=== PATIENT | female | born 1975 | race Two or more races ===

== ENCOUNTER 2024-03-24 12:30 | Emergency (ER) | payer OTHER ==
[~2024-03-24] VITALS: Ht 167.6 cm; Wt 63.0 kg
[2024-03-24 13:12] LABS: APPEARANCE,URINE CLEAR (CLEAR); BILIRUBIN,URINE NEGATIVE (NEGATIVE); BLOOD, URINE TRACE-INTA Ery/uL (NEGATIVE); COLOR,URINE YELLOW (YELLOW); KETONES,URINE NEGATIVE (NEGATIVE); LEUKOCYTE ESTERASE ,URINE NEGATIVE (NEGATIVE); NITRITE, URINE NEGATIVE (NEGATIVE); PH,URINE 6.5 (5.0-8.0); PROTEIN,URINE NEGATIVE (NEGATIVE); UGLUCOSE NEGATIVE (NEGATIVE); UROBILINOGEN,URINE 0.2 EU/dL (0.2)
[2024-03-24 13:12] LABS: BASOPHILS % (AUTO) 0.1 % (0.0-2.0); EOSINOPHILS % (AUTO) 0.3 % (0.0-6.0); HEMATOCRIT 31 % (33-45); LYMPHOCYTES # (AUTO) 1.4 K/uL (0.8-4.8); LYMPHOCYTES % (AUTO) 19.7 % (20.0-44.0); MEAN CORPUSCULAR HEMOGLOBIN 26 PG (26.0-33.0); MEAN CORPUSCULAR HGB CONC 33 g/dl (31.0-36.0); MEAN CORPUSCULAR VOLUME 79 fL (82-100); MONOCYTES # (AUTO) 0.9 K/uL (0.1-1.30); MONOCYTES % (AUTO) 12.2 % (2.0-12.0); NEUTROPHILS # (AUTO) 4.8 K/uL (1.8-8.9); NEUTROPHILS % (AUTO) 67.7 % (43.0-81.0); PLATELET COUNT (AUTO) 92 K/uL (150-450); RED BLOOD CELL COUNT(AUTO) 3.86 MIL/uL (4.0-5.2); RED CELL DISTRIBUTION WIDTH 17.5 % (11.5-15.0); WHITE BLOOD COUNT (AUTO) 7.1 K/uL (4.3-11.0)
[2024-03-24 13:13] LABS: ADD URINE CULTURE NO; BACTERIA,URINE None seen /HPF (None Seen); PREGNANCY TEST URINE QUAL NEGATIVE (NEGATIVE); SQUAMOUS EPITHELIAL CELL,UR Few /HPF (None Seen); WBC,URINE 0-2 /HPF (0-3)
[2024-03-24] MEDS ORDERED: ONDANSETRON HCL/PF 4 MG/2 ML VIAL ONE (13:24)
[2024-03-24 13:25] LABS: CREATININE 0.9 mg/dL (0.6-1.3); INR 1.01 (0.91-1.10); PARTIAL THROMBOPLASTIN TIME 24.9 SEC (24.3-34.3); POTASSIUM 3.1 mmol/L (3.5-5.1); PROTHROMBIN TIME 10.7 SECS (9.2-11.1)
[2024-03-24] MEDS: IV NS 0.9% 1,000 ML BAG IV ONE (13:26)
[2024-03-24] MEDS: ONDANSETRON HCL/PF 4 MG/2 ML VIAL IV ONE (13:27)
[2024-03-24 13:33] LABS: ALBUMIN 3.1 g/dL (3.4-5.0); BILIRUBIN,DIRECT 0.2 mg/dL (0.0-0.2); BILIRUBIN,TOTAL 0.6 mg/dL (0.2-1.0); TOTAL PROTEIN, SERUM 6.8 g/dL (6.4-8.2)
[2024-03-24 13:37] LABS: ALCOHOL, BLOOD < 3 mg/dL (0-10)
[2024-03-24] MEDS: PANTOPRAZOLE 80 MG in IV NS 0.9% 500 ML IV ONE (13:57)
[2024-03-24] MEDS ORDERED: ONDA4TAB5 PO (14:36)
[2024-03-24] MEDS ORDERED: PANT40TA2 PO (14:36)
[2024-03-24 14:42] LABS: PHOSPHORUS 2.6 mg/dL (2.5-4.9)
[2024-03-24 16:04] VITALS: BP 129/78; TEMP 97.9; O2SAT 100
[2024-03-24 18:07] LABS: AMPHETAMINE, URINE NEGATIVE (NEGATIVE); BARBITURATE, URINE NEGATIVE (NEGATIVE); BENZODIAZEPINE, URINE NEGATIVE (NEGATIVE); CANNABINOID, URINE NEGATIVE (NEGATIVE); COCCAINE, URINE NEGATIVE (NEGATIVE); PHENCYCLIDINE SCREEN,URINE NEGATIVE (NEGATIVE)
[2024-03-24 18:08] LABS: OPIATE, URINE POSITIVE (NEGATIVE)
== END 2024-03-24 16:05 | disposition home or self-care (01) ==
LOC: ER 12:30
DX: K92.0 Hematemesis (principal); E87.6 Hypokalemia; R10.2 Pelvic and perineal pain; Z79.899 Other long term (current) drug therapy; Z79.52 Long term (current) use of systemic steroids
CPT/HCPCS: 99285; 96365; 96361; 96375; 93005; 71045; 85025; 80048; 83690; 80076; 83735; 84100; 84703; 81001; 36415; 84443; 85730; 82962; 80320; 80307; J2405; J7030; J7040; J2470; A4223; G0480

== ENCOUNTER 2025-06-25 13:59 | Emergency (ER) | payer OTHER ==
[~2025-06-25] VITALS: Ht 162.6 cm; Wt 56.7 kg
[~2025-06-25 13:59] MED LIST: ONDA4TAB5 PO; PANT40TA2 PO
[2025-06-25 14:17] VITALS: TEMP 97.9
[2025-06-25 14:52] LABS: APPEARANCE,URINE CLEAR (CLEAR); BLOOD, URINE TRACE-INTA Ery/uL (NEGATIVE); LEUKOCYTE ESTERASE ,URINE NEGATIVE (NEGATIVE); NITRITE, URINE NEGATIVE (NEGATIVE); UGLUCOSE NEGATIVE (NEGATIVE)
[2025-06-25] MEDS: IV NS 0.9% 1,000 ML BAG IV ONE (15:00)
[2025-06-25 15:01] LABS: ADD URINE CULTURE YES
[2025-06-25 15:04] LABS: AMPHETAMINE, URINE NEGATIVE (NEGATIVE); BARBITURATE, URINE NEGATIVE (NEGATIVE); BENZODIAZEPINE, URINE NEGATIVE (NEGATIVE); CANNABINOID, URINE NEGATIVE (NEGATIVE); COCCAINE, URINE NEGATIVE (NEGATIVE); OPIATE, URINE NEGATIVE (NEGATIVE)
[2025-06-25 15:10] LABS: PLATELET COUNT (AUTO) 318 K/uL (150-450); RED BLOOD CELL COUNT(AUTO) 5.06 MIL/uL (4.0-5.2); RED CELL DISTRIBUTION WIDTH 16.0 % (11.5-15.0); WHITE BLOOD COUNT (AUTO) 4.8 K/uL (4.3-11.0)
[2025-06-25 15:24] LABS: CALCIUM, SERUM 8.6 mg/dL (8.5-10.1); CREATININE 0.6 mg/dL (0.6-1.3); SODIUM SERUM 142 mmol/L (136-145); UREA NITROGEN, BLOOD 8 mg/dL (7-18)
[2025-06-25 15:31] LABS: ASPARTATE AMINOTRANSFERASE 33 U/L (15-37); TOTAL PROTEIN, SERUM 7.2 g/dL (6.4-8.2)
[2025-06-25 16:07] VITALS: BP 114/75; O2SAT 98
== END 2025-06-25 16:08 | disposition home or self-care (01) ==
LOC: ER 14:13
DX: F10.229 Alcohol dependence with intoxication, unspecified (principal); Z79.899 Other long term (current) drug therapy; Y90.9 Presence of alcohol in blood, level not specified
CPT/HCPCS: 99284; 96360; 85025; 80048; 87086; 80076; 81001; 36415; 80143; 80320; 80307; J7030; G0480